=== PATIENT | male | born 1955 | race Caucasian/White ===

== ENCOUNTER 2017-05-28 12:12 | Day surgery (SDC) | payer OTHER ==
[~2017-05-28 12:12] MED LIST: ACETAMINOPHEN325 M1 PO; ASPIR-LOW81 MG PO; CALCIUM600 MG PO; FISH OIL 1,0001 EAC3; GLUCOSAMINE 1,1 EACH PO; HYDROCHLOROTH12.5 M1 PO; IBUPROFEN600 MG PO; LIPITOR10 MG PO; LOSARTAN POTAS100 MG PO; MONTELUKAST SOD10 MG PO; MULTI VITAMIN1 EACH PO; NORCO 5-325 TA1 EACH PO; PREDNISONE5 MG PO; ROBAXIN-750750 MG PO; TYLENOL WITH C1 EACH PO
--- NOTE | 2017-05-28 14:21 | NUR ---
05/28/17 1421 Iman Niño REPORT FROM JEREMY BARBER.
--- NOTE | 2017-06-08 10:25 | OR ---
[facility] [address], [place] [address] Signed DATE OF SERVICE: 05/28/2017 PREOPERATIVE DIAGNOSIS: Recent recurrent bouts of sigmoid diverticulitis. POSTOPERATIVE DIAGNOSIS: Sigmoid diverticulosis without sign of active inflammation; no evidence of polyps or cancer. PROCEDURE: Total colonoscopy to cecum. SURGEON: Ca Pires MD. ANESTHESIA: Intravenous sedation fentanyl 150 mcg, Versed 6 mg. INDICATION: A 61-year-old white man, a patient of [facility] [place] who has had bouts of left lower abdominal pain highly suggestive of acute diverticulitis. CT scan was performed, confirming diverticular changes on April 02, 2017. 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 His acute diverticulitis symptoms have resolved. He is admitted to undergo colonoscopy to better assess for neoplastic change. The risks of bleeding, infection, and perforation related to colonoscopy reviewed in detail. He understands and wished to proceed. FINDINGS: The prep was good. Complete colonoscopy was undertaken to the cecum. There were numerous diverticula of the sigmoid and left colon. No sign of stricture or neoplasm. No sign of polyps. There was no sign of active inflammation. DESCRIPTION OF PROCEDURE: The patient was brought to the endoscopy suite and placed in lateral decubitus position. Given intravenous sedation to the point of slurred speech and nystagmus. Digital rectal examination was normal. The Olympus video colonoscope was passed in the rectum and manipulated throughout the colon, ultimately intubating the cecum itself. The ileocecal valve and appendiceal orifice were normal. Scope was withdrawn from that point. Examination throughout showed no sign of abnormality into the left colon where diverticula were once again noted. Numerous diverticula were seen in the sigmoid as well. There is no sign of stricture, neoplasm, colitis, or other problem. The remaining colon and rectum appeared normal as Electronically Signed By: CA PIRES MD 06/08/17 1025 PATIENT NAME: TANIA TADEO OPERATIVE REPORT DATE OF : 55 PHYSICIAN: CA PIRES MD REPORT #: [id number] REPORT IS CONFIDENTIAL AND NOT TO BE RELEASED WITHOUT AUTHORIZATION [facility] [address] [place] [id number] Signed well. The scope was re moved and the patient was taken to recovery room in good condition. CONCLUDING DIAGNOSIS: Diverticular changes, no evidence of polyps or neoplasm. PLAN: Can now initiate a high-fiber diet. I would like to see him back in the office 4-6 weeks from now. If he has recurrent symptoms, he will let me or his primary provider know. MD BRIANNA Degroot/Stewart /[id number] Electronically Signed By: CA PIRES MD 06/08/17 1025 PATIENT NAME: TANIA TADEO OPERATIVE REPORT DATE OF : 55 PHYSICIAN: CA PIRES MD REPORT #: [id number] REPORT IS CONFIDENTIAL AND NOT TO BE RELEASED WITHOUT AUTHORIZATION
== END 2017-05-28 15:07 | disposition home or self-care (01) ==
LOC: OPS 12:12 → DS 12:12 → OPS 13:00 → DS 13:00 → OPS 15:07
PROVIDERS: Surgery
PROC: 0DJD8ZZ Inspection of Lower Intestinal Tract, Via Natural or Artificial Opening Endoscopic (ICD-10-PCS; principal; 2017-05-28 13:00)
DX: K57.30 Diverticulosis of large intestine without perforation or abscess without bleeding (principal); I10 Essential (primary) hypertension; Z91.030 Bee allergy status; Z90.49 Acquired absence of other specified parts of digestive tract; Z90.81 Acquired absence of spleen; Z98.890 Other specified postprocedural states
CPT/HCPCS: 99152; 99153; J2250; J3010; J7120

== ENCOUNTER 2021-05-04 09:51 | Emergency (ER) | payer OTHER ==
[~2021-05-04] VITALS: Ht 190.5 cm; Wt 101.6 kg
[~2021-05-04 09:51] MED LIST changes: +CIPRO500 MG PO; +HYDROCHLOROTH12.5 MG PO; +METOPROLOL SUCC25 MG PO; +METRONIDAZOLE250 MG PO
[2021-05-04] MEDS ORDERED: VITAMIN D3 COM1 EACH PO (10:30)
[2021-05-04] MEDS ORDERED: ZYRTEC10 M3 PO (10:31)
[2021-05-04] MEDS ORDERED: HYDROCODON-ACE1 EA10 PO (12:03)
[2021-05-04] MEDS ORDERED: AUGMENTIN 875-1 EACH PO (12:03)
== END 2021-05-04 12:20 | disposition home or self-care (01) ==
LOC: ED 09:51
DX: K57.32 Diverticulitis of large intestine without perforation or abscess without bleeding (principal); I10 Essential (primary) hypertension; Z79.899 Other long term (current) drug therapy; Z79.82 Long term (current) use of aspirin
CPT/HCPCS: 74176; 80053; 81001; 83690; 83735; 85025; 99284-25